=== PATIENT | female | born 2000 | race Caucasian/White ===

== ENCOUNTER 2024-01-11 13:41 | Emergency (ER) | payer MEDICAID ==
[~2024-01-11] VITALS: Ht 162.6 cm; Wt 104.3 kg
[2024-01-11 14:17] VITALS: BP 143/93; TEMP 97.8; O2SAT 98
[2024-01-11] MEDS ORDERED: IBUPROFEN 600 MG TABLET ONE (15:28)
[2024-01-11] MEDS: IBUPROFEN 600 MG TABLET PO ONE (15:58)
[2024-01-11] MEDS ORDERED: IBUP-1953 PO (16:45)
== END 2024-01-11 17:34 | disposition home or self-care (01) ==
LOC: ER 13:41
DX: B34.9 Viral infection, unspecified (principal); R05.9 Cough, unspecified; R51.9 Headache, unspecified; E11.9 Type 2 diabetes mellitus without complications; F32.A Depression, unspecified; Z20.822 Contact with and (suspected) exposure to COVID-19
CPT/HCPCS: 86403-TC; 87070-TC

== ENCOUNTER 2024-04-02 03:01 | Emergency (ER) | payer SELFPAY ==
[~2024-04-02] VITALS: Ht 162.6 cm; Wt 97.5 kg
[~2024-04-02 03:01] MED LIST: IBUP-1953 PO
[2024-04-02] MEDS: IV NS 0.9% 1,000 ML BAG IV ONE (04:00)
[2024-04-02 04:22] LABS: BASOPHILS % (AUTO) 0.5 % (0.0-2.0); EOSINOPHILS # (AUTO) 0.2 K/uL (0.0-0.7); EOSINOPHILS % (AUTO) 2.1 % (0.0-6.0); HEMATOCRIT 36 % (33-45); HEMOGLOBIN 11.7 g/dL (11.5-14.8); LYMPHOCYTES % (AUTO) 40.3 % (20.0-44.0); MEAN CORPUSCULAR HEMOGLOBIN 23 PG (26.0-33.0); MEAN CORPUSCULAR HGB CONC 32 g/dl (31.0-36.0); MEAN CORPUSCULAR VOLUME 70 fL (82-100); MONOCYTES # (AUTO) 0.5 K/uL (0.1-1.30); MONOCYTES % (AUTO) 6.6 % (2.0-12.0); NEUTROPHILS # (AUTO) 3.8 K/uL (1.8-8.9); NEUTROPHILS % (AUTO) 50.5 % (43.0-81.0); PLATELET COUNT (AUTO) 315 K/uL (150-450); RED BLOOD CELL COUNT(AUTO) 5.16 MIL/uL (4.0-5.2); RED CELL DISTRIBUTION WIDTH 17.1 % (11.5-15.0); WHITE BLOOD COUNT (AUTO) 7.5 K/uL (4.3-11.0)
[2024-04-02 04:29] LABS: CALCIUM, SERUM 8.3 mg/dL (8.5-10.1); CREATININE 0.7 mg/dL (0.6-1.3); POTASSIUM 3.6 mmol/L (3.5-5.1)
[2024-04-02 04:36] LABS: APPEARANCE,URINE CLEAR (CLEAR); BILIRUBIN,URINE NEGATIVE (NEGATIVE); BLOOD, URINE NEGATIVE Ery/uL (NEGATIVE); COLOR,URINE YELLOW (YELLOW); KETONES,URINE NEGATIVE (NEGATIVE); LEUKOCYTE ESTERASE ,URINE 1+ (NEGATIVE); NITRITE, URINE NEGATIVE (NEGATIVE); PROTEIN,URINE NEGATIVE (NEGATIVE); UGLUCOSE 3+ mg/dL (NEGATIVE); UROBILINOGEN,URINE 0.2 EU/dL (0.2)
[2024-04-02 04:37] LABS: ADD URINE CULTURE YES; BACTERIA,URINE Few /HPF (None Seen); SQUAMOUS EPITHELIAL CELL,UR Rare /HPF (None Seen)
[2024-04-02] MEDS ORDERED: NITR100C6 PO (04:44)
[2024-04-02] MEDS ORDERED: INSULIN REGULAR, HUMAN 100 UNIT/ML 10 ML VIAL ONE (04:59)
[2024-04-02] MEDS: INSULIN REGULAR, HUMAN 100 UNIT/ML 10 ML VIAL IV ONE (05:00)
[2024-04-02] MEDS: NITROFURANTOIN/MONOHYDRATE MACROCRYSTALS 100 MG CAPSULE PO ONE (05:49)
[2024-04-02] MEDS ORDERED: NITROFURANTOIN/MONOHYDRATE MACROCRYSTALS 100 MG CAPSULE ONE (05:49)
[2024-04-02 06:07] VITALS: BP 128/81; TEMP 98.7; O2SAT 98
== END 2024-04-02 06:08 | disposition home or self-care (01) ==
LOC: ER 03:03
DX: E11.65 Type 2 diabetes mellitus with hyperglycemia (principal); N39.0 Urinary tract infection, site not specified; R42 Dizziness and giddiness; F32.A Depression, unspecified; F41.9 Anxiety disorder, unspecified; Z60.2 Problems related to living alone
CPT/HCPCS: 99283; 96374; 96361; 85025; 80048; 87086; 82010; 81001; 36415; 82962 ×3; J1815; J7030